=== PATIENT | female | born 1980 | race Two or more races ===

== ENCOUNTER 2017-02-07 14:39 | Inpatient (IN) | payer BC, MEDICAID ==
[~2017-02-07] VITALS: Ht 167.6 cm; Wt 86.1 kg
[2017-02-07] MEDS ORDERED: SODIUM CHLORIDE 0.9% 1,000ML IVBOLUS ONE (15:00)
[2017-02-07] MEDS ORDERED: SODIUM CHLORIDE FLUSH 10ML SYR IVF ONE ×2 (15:00→17:30)
[2017-02-07] MEDS ORDERED: ONDANSETRON 2MG/ML, 2ML IVPush ONE (15:00)
[2017-02-07 15:11] LABS: HEMATOCRIT 39.7 % (34.6-47.8); HEMOGLOBIN 13.4 g/dL (11.7-16.4); WHITE BLOOD COUNT 8.8 x10^3/uL (3.4-10)
[2017-02-07 15:23] LABS: BLOOD UREA NITROGEN 14 mg/dL (7-18)
[2017-02-07 15:28] LABS: ASPARTATE AMINO TRANSFERASE 12 U/L (15-37)
[2017-02-07] MEDS ORDERED: PLEASE ENTER HEIGHT AND WEIGHT MC SCH (15:30)
[2017-02-07] MEDS ORDERED: NAPR500T PO (15:39)
[2017-02-07] MEDS ORDERED: GADOBUTROL 10 MMOL/10 ML PFS ONE (15:55)
[2017-02-07 17:25] LABS: DAU SCREEN DISCLAIMER
[2017-02-07] MEDS ORDERED: ONDANSETRON 2MG/ML, 2ML IVPush PRN (17:30)
[2017-02-07] MEDS ORDERED: ENALAPRILAT 1.25 MG/ML, 2ML IVPush PRN (17:30)
[2017-02-07] MEDS ORDERED: LORazepam 2 MG/ML, 1ML IVPush PRN (17:30)
[2017-02-07] MEDS ORDERED: DOCUSATE 100 MG CAPSULE PO PRN (17:30)
[2017-02-07] MEDS ORDERED: BISACODYL 10 MG SUPP PR PRN (17:30)
[2017-02-07] MEDS ORDERED: ONDANSETRON ODT 4 MG PO PRN (17:30)
[2017-02-07 18:56] LABS: IS PT STATUS REG ER OR PRE ER? YES
[2017-02-07 19:46] VITALS: BP 113/74
[2017-02-07 20:07] VITALS: BP 113/74
[2017-02-07] MEDS: ENOXAPARIN 40 MG/0.4 ML SQ SCH (21:49)
[2017-02-07] MEDS: SODIUM CHLORIDE 0.9% 1,000 ML IV SCH (21:50)
[2017-02-07 22:33] VITALS: BP 113/87
[2017-02-08 00:27] VITALS: BP 109/68
[2017-02-08 07:36] LABS: HEMATOCRIT 35.9 % (34.6-47.8); HEMOGLOBIN 12.3 g/dL (11.7-16.4); WHITE BLOOD COUNT 6.4 x10^3/uL (3.4-10)
[2017-02-08 07:46] VITALS: BP 103/65
[2017-02-08 07:49] LABS: ASPARTATE AMINO TRANSFERASE 8 U/L (15-37); BLOOD UREA NITROGEN 11 mg/dL (7-18)
[2017-02-08] MEDS: SENNA/DOCUSATE TABLET PO SCH (11:40)
[2017-02-08] MEDS: SODIUM CHLORIDE 0.9% 1,000 ML IV SCH (11:40)
[2017-02-08 13:53] LABS: CYTOLOGY BODY FLUID RECD INTO PATHOLOGY; CYTOLOGY BODY FLUID SOURCE CEREBROSPINAL FLUID
[2017-02-08 14:13] LABS: GLUCOSE, CSF 44 mg/dL (40-80)
[2017-02-08 20:00] VITALS: BP 105/71
[2017-02-08] MEDS: ENOXAPARIN 40 MG/0.4 ML SQ SCH (20:56)
[2017-02-09] MEDS: SODIUM CHLORIDE 0.9% 1,000 ML IV SCH
[2017-02-09 02:00] VITALS: BP 101/67
[2017-02-09 06:10] LABS: HEMOGLOBIN 12.3 g/dL (11.7-16.4); WHITE BLOOD COUNT 7.2 x10^3/uL (3.4-10)
[2017-02-09] MEDS: ACETAMINOPHEN 325 MG TABLET PO PRN (06:19)
[2017-02-09 06:42] LABS: ASPARTATE AMINO TRANSFERASE 15 U/L (15-37); BLOOD UREA NITROGEN 8 mg/dL (7-18)
[2017-02-09] MEDS: SENNA/DOCUSATE TABLET PO SCH (08:49)
[2017-02-09 09:58] VITALS: BP 145/76
[2017-02-09 14:52] VITALS: BP 103/63
[2017-02-09] MEDS ORDERED: [UNRECOGNIZED DRUG - REMARK] MC SCH (15:00)
[2017-02-09 18:41] LABS: ANA SCREEN NEGATIVE (Negative)
[2017-02-09 19:22] VITALS: BP 120/69
[2017-02-09] MEDS: ENOXAPARIN 40 MG/0.4 ML SQ SCH (20:35)
[2017-02-10 00:06] VITALS: BP 112/63
[2017-02-10 04:01] VITALS: BP 111/72
[2017-02-10 08:01] VITALS: BP 108/70
[2017-02-10] MEDS: SENNA/DOCUSATE TABLET PO SCH (08:51)
[2017-02-10] MEDS: ACETAMINOPHEN 325 MG TABLET PO PRN (08:54)
[2017-02-10] MEDS ORDERED: GADOBUTROL 10 MMOL/10 ML PFS ONE (12:37)
[2017-02-10] MEDS ORDERED: POLYETHYLENE GLYCOL 17 GM PACKET PO PRN (13:00)
[2017-02-10 13:32] VITALS: BP 101/68
[2017-02-10 19:35] VITALS: BP 126/75
[2017-02-10] MEDS: ENOXAPARIN 40 MG/0.4 ML SQ SCH (20:49)
[2017-02-11 01:06] VITALS: BP 106/66
[2017-02-11 08:33] VITALS: BP 107/63
[2017-02-11 12:13] VITALS: BP 99/63
[2017-02-11] MEDS: SENNA/DOCUSATE TABLET PO SCH (15:08)
[2017-02-11 19:39] VITALS: BP 109/66
[2017-02-11] MEDS: ENOXAPARIN 40 MG/0.4 ML SQ SCH (22:14)
[2017-02-12 01:14] VITALS: BP 104/61
[2017-02-12 07:48] VITALS: BP 110/67
[2017-02-12] MEDS: SENNA/DOCUSATE TABLET PO SCH (09:39)
[2017-02-12] MEDS ORDERED: SIMV40TA PO (10:44)
[2017-02-12] MEDS ORDERED: POLY17PO5 PO (10:52)
[2017-02-12] MEDS ORDERED: FLU VACC QS2017-18 (36MOS+) UP/PF 0.5 ML IM-VACC ONE (11:30)
[2017-02-12 14:25] VITALS: BP 105/67
[2017-02-13 13:07] LABS: ALBUMIN 3.8 g/dL (2.9-4.4); ALPHA-1-GLOBULIN 0.3 g/dL (0.0-0.4); BETA GLOBULIN 1.4 g/dL (0.7-1.3); GAMMA GLOBULIN 1.4 g/dL (0.4-1.8); PROTEIN TOTAL 7.7 g/dL (6.0-8.5)
[2017-02-13 14:08] LABS: ALBUMIN CSF 10 mg/dL (11-48); ALBUMIN SERUM 3.9 g/dL (3.5-5.5); CSF IGG INDEX 0.7 (0.0-0.7); CSF/SERUM ALBUMIN INDEX 3 (0-8); IGG SERUM 1156 mg/dL (700-1600); IGG SYNTHESIS RATE CSF -1.2 mg/day (-9.9 TO +3.3); MYELIN BASIC PROTEIN CSF 2.6 ng/mL (0.0-1.2)
[2017-02-13 18:07] LABS: COMPLEMENT C4 28 mg/dL (14-44); MITOCHONDRIAL (M2) AB 8.6 Units (0.0-20.0); PARIETAL CELL AB 5.1 Units (0.0-20.0); STRIATION AB Negative (Neg:<1:40); THYROID PEROXIDASE (TPO) AB 15 IU/mL (0-34)
== END 2017-02-12 14:50 | disposition home or self-care (01) | DRG 59 ==
LOC: ED 17:23 → EDIP 17:24 → ED 17:47 → 4EST 19:38
PROVIDERS: ADMIT Internal Medicine; ATTEND Internal Medicine
PROC: 009U3ZX Drainage of Spinal Canal, Percutaneous Approach, Diagnostic (ICD-10-PCS; principal; 2017-02-08)
PROC: B01B1ZZ Fluoroscopy of Spinal Cord using Low Osmolar Contrast (ICD-10-PCS; 2017-02-08)
DX: G35 Multiple sclerosis (principal); G45.9 Transient cerebral ischemic attack, unspecified; E78.5 Hyperlipidemia, unspecified; K59.00 Constipation, unspecified; Z23 Encounter for immunization; Z82.3 Family history of stroke; Z90.49 Acquired absence of other specified parts of digestive tract
CPT/HCPCS: 36415; 62270; 70450; 70553; 71010; 72156; 80053; 80061; 80307; 81003; 82040; 82042; 82784; 82945; 83516; 83615; 83735; 83873; 84100; 84155; 84157; 84165; 84439; 84443; 84484; 84703; 85025; 85610; 85651; 85730; 86038; 86160; 86225; 86235; 86255; 86376; 86592; 86645; 86695; 86696; 86762; 86777; 86778; 87070; 87116; 87205; 87206; 88108; 89051; 90686; 93005; 93306; 93880; 95816; 95819; 96360; A9585; J1650; J2930; 92523-GN; G0479; J7030